=== PATIENT | female | born 1955 | race Caucasian/White ===

== ENCOUNTER 2017-02-05 00:03 | Emergency (ER) | payer MEDICARE, BC ==
[2017-02-05] MEDS ORDERED: Phenytoin 1,000 MG in Sodium Chloride 0.9% 100 ML IV SCH (00:45)
[2017-02-05] MEDS ORDERED: Dexamethasone 10 MG/ML SDV IVPUSH ONE (01:17)
--- NOTE | 2017-02-05 01:47 | EDM.PDOC ---
ED HPI GENERAL MEDICAL PROBLEM - General Chief Complaint: General Stated Complaint: Seizure Time Seen by Provider: 02/05/17 00:45 Source of Information: Reports: Patient, Other (Spouse) - History of Present Illness INITIAL COMMENTS - FREE TEXT/NARRATIVE: The patient is brought to the ER by EMS ground ambulance from home after a new onset seizure that reportedly occurred at approximately 22:45. reports she had a generalized tonic-clonic seizure while sitting down that lasted approximately 1-2 minutes. He reports during the seizure she had generalized tonic-clonic movements that occurred uncontrollably. He denies that she bit her tongue or had bowel or bladder incontinence. Following the episode he reports she was postictal for several minutes and the left side of her body was flaccid. On arrival in the ER her GCS is 15 and she is able to communicate. She does not recall the seizure. and the patient reports strength of left side has gradually improved since the seizure. They also reports following the seizure she had slight left facial droop which has also resolved. The patient has Stage 4 Breast Cancer with known innumerable metastases to the brain and has received whole brain radiation late in 2016 and has reportedly received the maximum dose of radiation to the brain. Her breast cancer was originally diagnosed 6-7 years ago and was treated with radical mastectomy on the left and chemotherapy and radiation including whole brain radiation as described above. The patient denies headache and visual changes currently. She reports subjective weakness of left side but reports it has improved significantly since the seizure. The patient and deny fall, blow to the head, neck or back pain, chest pain or shortness of breath, and other symptoms or complaints. The patient's oncologist is Dr. Hodge and radiation oncologist is Dr. Dennis at [facility]. - Related Data Allergies Allergy/AdvReac Type Severity Reaction Status Date / Time adhesive Allergy Rash Verified 02/05/17 00:26 codeine Allergy Nausea Verified 02/05/17 00:26 Past Medical History Oncologic (Cancer) History: Reports: Breast (Stage 4 diagnosed 6-7 years ago and reported innumerable brain metastases.) Social & Family History - Tobacco Use Smoking Status *Q: Former Smoker Used Tobacco, but Quit: Yes Month Tobacco Last Used: Rickey - Caffeine Use Caffeine Use: Reports: None - Recreational Drug Use Recreational Drug Use: No ED ROS GENERAL - Review of Systems Review Of Systems: ROS reveals no pertinent complaints other than HPI. ED EXAM, GENERAL - Physical Exam Exam: See Below Exam Limited By: No limitations General Appearance: alert, WD/WN, no apparent distress, lethargic (Mildly lethargic but eyes remain open. ) Eye Exam: bilateral eye: EOMI, normal inspection, PERRL Ears: normal external exam, normal canal, hearing grossly normal, normal TMs Ear Exam: bilateral ear: auricle normal, canal normal, TM normal Nose: normal inspection, normal mucosa, no blood Throat/Mouth: Normal inspection, Normal lips, Normal teeth, Normal gums, Normal oropharynx, Normal voice Head: atraumatic, normocephalic Neck: normal inspection, supple, non-tender, full range of motion. No: lymphadenopathy (L), lymphadenopathy (R), tender lateral, tender midline Respiratory/Chest: no respiratory distress, lungs clear, normal breath sounds, no accessory muscle use, chest non-tender Cardiovascular: normal peripheral pulses, regular rate, rhythm, no edema, no gallop, no murmur, no rub GI/Abdominal: normal bowel sounds, soft, non tender, no organomegaly, no distention Back Exam: normal inspection, full range of motion. No: CVA tenderness (L), CVA tenderness (R), paraspinal tenderness, vertebral tenderness Extremities: normal inspection, normal range of motion, non-tender, no pedal edema, normal capillary refill Neurological: alert, oriented, CN II-XII intact, normal cognition, normal gait, normal reflexes, other (GCS 15. PERRLA. Pupils 4-2 mm reactive to light. No nystagmus. VF and VA normal to screening exam. Pronator drift of left arm > left leg. No pronator drift of right arm or leg. No dysmetria. Tone normal. No clonus or spasticity. Speech normal. ) Psychiatric: normal affect, normal mood Skin Exam: Warm, Dry, Intact, Normal color, No rash Lymphatic: no adenopathy Course - Vital Signs Last Recorded V/S: Last Vital Signs Temp 36.4 C 02/05/17 00:04 Pulse 65 02/05/17 00:04 Resp 18 02/05/17 00:04 BP 127/72 02/05/17 00:04 Pulse Ox 95 02/05/17 00:04 - Orders/Labs/Meds Orders: Active Orders 24 hr Category Date Time Status Head wo Cont [CT] Stat Exams 02/05/17 00:24 Taken Phenytoin 1,000 mg Med 02/05/17 00:45 Active Sodium Chloride 0.9% [Normal Saline] 100 ml IV Q8H Medication Orders Phenytoin Sodium 1,000 mg/ (Sodium Chloride) 120 mls @ 100 mls/hr IV Q8H NOEMY Last Admin: 02/05/17 00:52 Dose: 100 mls/hr Labs: Laboratory Tests 02/05/17 02/05/17 02/05/17 Range/Units 01:00 01:00 01:00 WBC 11.1 H (4.0-10.2) K/uL RBC 5.57 H (3.77-5.09) M/uL Hgb 16.2 H (11.7-15.5) g/dL Hct 48.9 H (34.0-46.0) % MCV 87.8 (84.0-98.0) fL MCH 29.1 (28.2-33.3) pg MCHC 33.1 (31.7-36.0) g/dL RDW 16.3 H (11.2-14.1) % Plt Count 172 (150-350) K/uL Neut % (Auto) 82.8 H (45.0-80.0) % Lymph % (Auto) 8.3 L (10.0-50.0) % [place] % (Auto) 7.1 (2.0-14.0) % Eos % (Auto) 1.4 (0.0-5.0) % Baso % (Auto) 0.4 (0.0-2.0) % Neut # (Auto) 9.18 H (1.40-7.00) K/uL Lymph # (Auto) 0.92 (0.50-3.50) K/uL [place] # (Auto) 0.79 (0.00-1.00) K/uL Eos # (Auto) 0.16 (0.00-0.50) K/uL Baso # (Auto) 0.04 (0.00-0.20) K/uL PT 13.4 H (9.8-11.7) SEC INR 1.2 APTT 26.6 (23.5-30.0) SEC Sodium 134 L (136-145) mmol/L Potassium 3.7 (3.5-5.1) mmol/L Chloride 99 (98-107) mmol/L Carbon Dioxide 27.4 (21.0-32.0) mmol/L BUN 27 H (7-18) mg/dL Creatinine 1.48 H (0.51-1.17) mg/dL Est Cr Clr Drug Dosing 35.34 mL/min Estimated GFR (MDRD) 36 mL/min Glucose 204 H (74-106) mg/dL Calcium 8.8 (8.5-10.1) mg/dL Total Bilirubin 1.2 H (0.2-1.0) mg/dL AST 33 (15-37) U/L ALT 18 (12-78) U/L Alkaline Phosphatase 149 H (46-116) IU/L Total Protein 7.0 (6.4-8.2) g/dL Albumin 2.7 L (3.4-5.0) g/dL Meds: Medications Generic Name Dose Route Start Last Admin Trade Name Freq PRN Reason Stop Dose Admin Phenytoin Sodium 1,000 mg/ 120 mls @ 100 mls/hr 02/05/17 00:45 02/05/17 00:52 Sodium Chloride IV 100 mls/hr Q8H NOEMY Administration Discontinued Medications Generic Name Dose Route Start Last Admin Trade Name Freq PRN Reason Stop Dose Admin Dexamethasone 10 mg 02/05/17 01:17 02/05/17 01:26 Dexamethasone IVPUSH 02/05/17 01:18 10 mg ONETIME ONE Administration - Radiology Interpretation Free Text/Narrative:: CT of the brain without contrast reveals cytotoxic cerebral edema of right hemisphere. No significant mass effect or midline shift. Basilar cisterns not effaced. Known metastases not visualized as the study is noncontrasted. Radiologist reports edema significantly increased from last MRI of brain at [facility] in November of 2016. Departure - Departure Time of Disposition: 01:53 Disposition: DC/Tfer to Acute Hospital 02 Clinical Impression: New onset seizure, Generalized tonic-clonic seizure, Brain metastases, Cerebral edema Breast cancer, stage 4 Qualifiers: Laterality: left Qualified Code(s): C50.912 - Malignant neoplasm of unspecified site of left female breast Forms: ED Department Discharge - My Orders Last 24 Hours: My Active Orders 02/05/17 00:24 Head wo Cont [CT] Stat 02/05/17 00:45 Phenytoin 1,000 mg Sodium Chloride 0.9% [Normal Saline] 100 ml IV Q8H - Assessment/Plan Last 24 Hours: My Active Orders 02/05/17 00:24 Head wo Cont [CT] Stat 02/05/17 00:45 Phenytoin 1,000 mg Sodium Chloride 0.9% [Normal Saline] 100 ml IV Q8H Assessment:: New onset generalized tonic-clonic seizure. Stage 4 Breast Cancer. Brain Metastases. Cerebral Edema. Plan: 1. Given 1,000 mg IV phenytoin in ER. 2. Given Dexamethasone 10 mg IVP in ER for cerebral edema. 3. Discussed concern of progression of disease with increased cerebral edema and likely increased number and/or size of brain metastases with patient and and they request transfer to [facility] in [place] at this time. They are aware that her condition is terminal. 4. Called to discuss with on-call hospitalist at [facility] in [place] Dr. Henderson who agrees to accept in transfer. 5. Transfer by ALS ground ambulance with continuous telemetry, pulse oximetry, oxygen by nasal cannula, and instructed to give Ativan 2 mg IV PRN seizure and may repeat x 2 as needed for refractory seizure.
[2017-02-05 11:12] VITALS: BP 128/70
== END 2017-02-05 02:30 ==
LOC: LL.ED 00:03
DX: R56.9 Unspecified convulsions (principal); C50.912 Malignant neoplasm of unspecified site of left female breast; C79.31 Secondary malignant neoplasm of brain; Z87.891 Personal history of nicotine dependence; Z88.8 Allergy status to other drugs, medicaments and biological substances; Z91.09 Other allergy status, other than to drugs and biological substances
CPT/HCPCS: 36415; 70450; 80053; 85025; 85610; 85730; 96365; 96375; 99285; J1100; J1165; J7050; 99284